=== PATIENT | male | born 1995 | race Two or more races ===

== ENCOUNTER 2025-03-14 23:56 | Emergency (ER) | payer MEDICAID, SELFPAY ==
[2025-03-14 23:58] VITALS: BMI 28.5
[2025-03-15] VITALS: BP 140/83; PULSE 109; RESP 19; TEMP 36.8; O2SAT 98
--- NOTE | 2025-03-15 00:35 | PD.EDMEDCL ---
ED Medical Clearance RME/HPI General Chief complaint: Medical Clearance Stated complaint: MEDICAL CLEARANCE Time Seen by Provider: 03/15/25 00:31 Arrival date/time: 03/14/25 23:56 RME / HPI RME / HPI Narrative: This section includes all my notes and documentations, including HPI, PE, and ED course. Chu Trivedi MD HPI: 29 y/o male with Hx of Methamphetamine and Alcohol Use BIB [facility] presents to ED requesting medical clearance s/p being found in prone position and unresponsive by family. Patient was found with white, powdery substance and rock type of substance in his sock. Once [facility] made contact with patient, patient was coherent, alert, and appropriately answered questions. Patient states he did not overdose, but was simply under the influence of alcohol. Requests medical clearance without diagnostic tests. No other complaints. ROS: All negative except as documented in HPI. Physical Exam: General: Alert and oriented. No acute distress. Eyes: Conjunctivae and lids clear. EOMI. PERRL. ENT: No signs of head trauma. Neck: Supple. No tenderness. Heart: RRR. Lungs: No respiratory distress. Good air movement. No rhonchi, wheezing, rales. Chest: No tenderness. Abdomen: Soft and nontender. Normal bowel sounds. No distension. No rebound or guarding. Back: No tenderness. Legs: No clubbing, cyanosis, edema. Skin: Warm and dry. Neuro: Alert and oriented X 3. Cranial Nerves II-XII grossly intact. No peripheral motor deficits. Musculoskeletal: All major joints and bones are not tender with no limited ROM. At this point, diagnoses include: Medical Clearance for Incarceration. Based on my best medical judgment, made decision to medically clear the patient and no further evaluation or treatment indicated at this time. Patient understands and agrees to the discharge instructions customized and printed, see below. Discharge Instructions from Dr. Trivedi printed for you: 1. After evaluation, you are medically cleared for usp. As you requested without any diagnostic tests. You are fully awake and alert and oriented to time and place and date. The vitals are normal. The physical exam is normal. 2. See a private doctor on 03/16/2025 or whenever you are released for recheck and further care. 3. Seek immediate medical care with any concerns. You can ask for medical attention any time. Chu Trivedi MD Related Information Home Medications ?Medication ?Instructions ?Recorded ?Confirmed No Known Home Medications 03/18/21 03/18/21 Allergies Allergy/AdvReac Type Severity Reaction Status Date / Time No Known Allergies Allergy Unverified 03/18/21 11:37 Review of Systems Review of Systems Systems Reviewed: All systems reviewed, normal except as documented Past Medical History Social History SMOKING STATUS: Heavy (> 1 pack/day) SUBSTANCE USE: methamphetamine SUBSTANCE LAST USED: unknown ALCOHOL: Current ALCOHOL FREQUENCY: A Few Times a Week ALCOHOL LAST INTAKE: Just Prior to Arrival LIVES WITH: Family ED Exam Narrative Physical exam: Refer to HPI Course Quality Measures none Vital Signs Vital signs: Vital Signs Temperature 98.2 F 03/15/25 00:00 Pulse Rate 109 H 03/15/25 00:00 Respiratory Rate 19 03/15/25 00:00 Blood Pressure 140/83 H 03/15/25 00:00 Pulse Oximetry (%) 98 03/15/25 00:00 Oxygen Delivery Method Room Air 03/15/25 00:00 Medical Clearance MDM Narrative MDM Narrative:: Scribe Attestation: Sima Silva am scribing for and in the presence of Dr. Trivedi. Provider Notation: Although this document has been carefully reviewed, there may still be some phonetic and other typographical errors.? These errors are purely grammatical due to imperfections in the software program and should not be construed in any way to? compromise the substance of the patient's medical care during this visit. 29 y/o male with Hx of Methamphetamine and Alcohol Use BIB [facility] presents to ED requesting medical clearance s/p being found in prone position and unresponsive by family. Patient was found with a white, powdery substance and rock type of substance in his sock. Once [facility] made contact with patient, patient was coherent, alert, and responded when spoken to. Patient states he did not overdose, but was simply under the influence of alcohol. No other complaints. Patient data External records reviewed:: [facility] previous records (No recent ED records available for review.) Clinical information provided by:: patient and law enforcement Social determinants that could affect healthcare access:: substance use (methamphetamine and alcohol) Patient has the following chronic illnesses:: None reported How is presenting disease/condition affected by chronic disease/condition?: no chronic disease Evaluation data The following diagnostics were reviewed and interpreted by me:: other (specify) (N/A) Lab and/or radiology exams considered but not ordered:: None Interpretation Summary: N/A Medications / Prescriptions Medications or Prescriptions considered but not ordered:: None Medication administrations:: N/A Consultations Consultation(s) initiated? (list below): No Diagnosis Medical Clearance Differential Diagnosis: other (Drug overdose, Alcohol intoxication) Most likely diagnosis given after review of the tests above:: Medical Clearance for Incarceration Admission Indicated Admission indicated?: not indicated Explain why admission is indicated or not indicated:: With no condition needing emergent intervention, there was no indication for admission. Admission Request Was there a request for admission?: No Disposition Plan Disposition Plan: other (specify) (Discharge to [facility]) Discharge Plan Plan Patient Disposition: HOME (Self Care) Prescriptions/Referrals Prescriptions/Med Rec: No Action No Known Home Medications Problem List Clinical Impression: Medical clearance for incarceration Patient/Caregiver Discharge Instructions Discharge Activity: activity as tolerated Education Materials: ED Drug Abuse, ED Alcohol Abuse Additional Instructions: Discharge Instructions from Dr. Trivedi printed for you: 1. After evaluation, you are medically cleared for usp. As you requested without any diagnostic tests. You are fully awake and alert and oriented to time and place and date. The vitals are normal. The physical exam is normal. 2. See a private doctor on 03/16/2025 or whenever you are released for recheck and further care. 3. Seek immediate medical care with any concerns. You can ask for medical attention any time. Print Language: Andorran Stand Alone Forms: [facility]anna Award Info., Patient Portal Info Letter
== END 2025-03-15 00:51 | disposition home or self-care (01) ==
PROVIDERS: Emergency Provider Emergency Medicine
DX: Z02.89 Encounter for other administrative examinations (principal)
CPT/HCPCS: 99282